=== PATIENT | female | born 1985 | race Caucasian/White ===

== ENCOUNTER 2020-05-08 12:44 | Inpatient (IN) | payer BC, OTHER ==
[2020-05-08] VITALS (8 sets, daily range): BP systolic 100–116; BP diastolic 52–68
[~2020-05-08] VITALS: Ht 172.7 cm; Wt 73.0 kg
[2020-05-08 13:33] LABS: BASO # 0.1 x10^3/uL (0.0-0.2); BASO % 1 % (0-3); EOS # 0.1 x10^3/uL (0.0-0.7); EOS % 1 % (0-3); HEMATOCRIT 39.5 % (36.0-47.0); HEMOGLOBIN 13.1 g/dL (12.0-15.5); LYMPH # 2.7 x10^3/uL (1.0-4.8); LYMPH % 17 % (24-48); MEAN CORPUSCULAR HEMOGLOBIN 29 pg (25-35); MEAN CORPUSCULAR HGB CONC 33 g/dL (31-37); MEAN CORPUSCULAR VOLUME 88 fL (79-100); MONO # 0.7 x10^3/uL (0.0-1.1); MONO % 5 % (0-9); NEUT # 12.3 x10^3/uL (1.8-7.7); NEUT % 77 % (31-73); PLATELET COUNT 413 x10^3/uL (140-400); RED BLOOD COUNT 4.51 x10^6/uL (3.50-5.40); RED CELL DISTRIBUTION WIDTH 13.3 % (11.5-14.5)
[2020-05-08 13:47] LABS: PROTHROMBIN TIME PATIENT 12.7 SEC (11.7-14.0)
[2020-05-08 14:15] LABS: PREG TEST PT QUAL NEGATIVE (NEG)
[2020-05-08] MEDS ORDERED: IV NORMAL SALINE 1000ML BAG 1,000 ML IV ONE ×2 (14:15)
[2020-05-08] MEDS ORDERED: ONDANSETRON PF 4 MG/2 ML VIAL. IVP ONE (14:15)
[2020-05-08] MEDS ORDERED: MORPHINE SULFATE 10 MG/ML VIAL. IV ONE (14:15)
--- NOTE | 2020-05-08 17:30 | ED.ADGEN ---
Past Medical History Past Medical History: No Pertinent History Past Surgical History: Other Smoking Status: Never Smoker Alcohol Use: None General Adult EDM: Chief Complaint: VAGINAL BLEEDING HPI: HPI: Patient is a 35-year-old previously healthy female who presents to the emergency room complaining of vaginal bleeding. Patient had a LEEP procedure done at an outside facility just over 2 weeks ago. She has not had any problems until today. She was at work and stood up and felt a gush of blood. Since then she has had continuous bleeding with lots of clots. She denies any chance of being . She is having lower abdominal cramping. She feels fatigued but denies any dizziness shortness of breath. Review of Systems: Review of Systems: General: Denies fever, chills, sweats, fatigue Eyes: Denies drainage, blurred vision, eye redness HENT: Denies rhinorrhea, sore throat, earache Respiratory: Denies cough, shortness of breath, wheezing Cardiac: Denies edema, palpitations, chest pain GI: Denies abdominal pain, Nausea, vomiting : Heavy vaginal bleeding. Denies vaginal discharge MSK: Denies back pain, neck pain Skin: Denies rash, jaundice Neuro: Denies headache, dizziness Psychiatric: Denies SI/HI Current Medications: Current Medications Medications (Trade) Dose Ordered Sig/Katia Start Time Stop Time Status Last Admin Dose Admin Morphine Sulfate (Morphine Sulfate) 5 mg 1X ONCE 05/08/20 14:15 05/08/20 14:16 DC 05/08/20 14:27 5 MG Ondansetron HCl (Zofran) 4 mg 1X ONCE 05/08/20 14:15 05/08/20 14:16 DC 05/08/20 14:27 4 MG Sodium Chloride 1,000 ml @ 1,000 mls/hr 1X ONCE 05/08/20 14:15 05/08/20 15:14 DC 05/08/20 13:20 1,000 MLS/HR Allergies: Allergies: Allergies Coded Allergies Type Severity Reaction Last Updated Verified No Known Drug Allergies 06/24/13 No Physical Exam: PE: Constitutional: Well developed, well nourished, no acute distress, non-toxic appearance. HENT: Normocephalic, atraumatic, bilateral external ears normal, nose normal. Eyes: PERRLA, EOMI, conjunctiva normal, no discharge. Neck: Normal range of motion, no stridor. Cardiovascular: Heart rate regular rhythm Lungs & Thorax: Respirations even and unlabored, no retractions, no respiratory distress Pelvic Exam: Store Administrative Assistant present Abdomen: Nontender, soft External Genitalia: Normal Skin Speculum: Normal vaginal mucosa, large golf ball size clots in the vaginal vault with continuous dark bleeding, no arterial bleeding Bimanual: No adnexal masses or tenderness, No CMT Skin: Warm, dry, no erythema, no rash. Back: No tenderness Extremities: No cyanosis, ROM intact, no edema. Neurologic: Alert and oriented X 3, no focal deficits noted. Psychologic: Affect normal, judgement normal, mood normal. Recurrent perforated Current Patient Data: Labs: Laboratory Tests Test 05/08/20 13:10 05/08/20 14:00 White Blood Count 16.0 x10^3/uL (4.0-11.0) H Red Blood Count 4.51 x10^6/uL (3.50-5.40) Hemoglobin 13.1 g/dL (12.0-15.5) Hematocrit 39.5 % (36.0-47.0) Mean Corpuscular Volume 88 fL (79-100) Mean Corpuscular Hemoglobin 29 pg (25-35) Mean Corpuscular Hemoglobin Concent 33 g/dL (31-37) Red Cell Distribution Width 13.3 % (11.5-14.5) Platelet Count 413 x10^3/uL (140-400) H Neutrophils (%) (Auto) 77 % (31-73) H Lymphocytes (%) (Auto) 17 % (24-48) L Monocytes (%) (Auto) 5 % (0-9) Eosinophils (%) (Auto) 1 % (0-3) Basophils (%) (Auto) 1 % (0-3) Neutrophils # (Auto) 12.3 x10^3/uL (1.8-7.7) H Lymphocytes # (Auto) 2.7 x10^3/uL (1.0-4.8) Monocytes # (Auto) 0.7 x10^3/uL (0.0-1.1) Eosinophils # (Auto) 0.1 x10^3/uL (0.0-0.7) Basophils # (Auto) 0.1 x10^3/uL (0.0-0.2) Prothrombin Time 12.7 SEC (11.7-14.0) Prothrombin Time INR 1.0 (0.8-1.1) Serum Test, Qualitative Negative (NEG) SARS-CoV-2 Antigen (Rapid) Negative (NEGATIVE) Laboratory Tests 05/08/20 13:10 Vital Signs: Vital Signs Date Time Temp Pulse Resp B/P (MAP) Pulse Ox O2 Delivery O2 Flow Rate FiO2 05/08/20 14:45 102 16 106/68 (81) 99 Room Air 05/08/20 13:05 98.7 98.7 EKG: EKG: [] Heart Score: Risk Factors: Risk Factors: DM, Current or recent (<one month) smoker, HTN, HLP, family history of CAD, obesity. Risk Scores: Score 0 - 3: 2.5% MACE over next 6 weeks - Discharge Home Score 4 - 6: 20.3% MACE over next 6 weeks - Admit for Clinical Observation Score 7 - 10: 72.7% MACE over next 6 weeks - Early Invasive Strategies Radiology/Procedures: Radiology/Procedures: [] Course & Med Decision Making: Course & Med Decision Making Pertinent Labs and Imaging studies reviewed. (See chart for details) Patient is a 35-year-old female who presents to the emergency room complaining heavy vaginal bleeding 2 weeks after a LEEP procedure. On exam patient has large amounts of blood clots with continuous bleeding. I called her BOX [facility] Dr. Bernal who stated the she would prefer the patient be transferred to where she had the procedure done. I called and talked to the physician and [facility] who feels that the patient is not stable for transfer. Dr. Bernal will admit the patient and take her to the OR for repair. Dragon Disclaimer: Dragbecky Disclaimer: This electronic medical record was generated, in whole or in part, using a voice recognition dictation system. Critical Care Time Critical Care: Authorized and Performed by: Parris Law MD Total critical care time: approximately 35 minutes Due to a high probability of clinically significant, life threatening deterioration, the patient required my highest level of preparedness to intervene emergently and I personally spent this critical care time directly and personally managing the patient. This critical care time included obtaining a history; examining the patient; pulse oximetry; ventilator management if necessary; ordering and review of studies; arranging urgent treatment with development of a management plan; evaluation of patient's response to treatment; frequent reassessment; discussion with patient/family; and, discussions with other providers. This critical care time was performed to assess and manage the high probability of imminent, life-threatening deterioration that could result in multi-organ failure. It was exclusive of separately billable procedures and treating other patients and teaching time. Please see MDM section and the rest of the note for further information on patient assessment and treatment. Departure Departure Impression: Primary Impression: Excessive vaginal bleeding Disposition: 09 ADMITTED INPT THIS HOSP Condition: STABLE Referrals: VIKTOR ADAME DO (PCP) PARRIS LAW MD May 08, 2020 17:30
[2020-05-08] MEDS ORDERED: IV RINGERS,LACTATED 1000ML 1,000 ML IV SCH (18:12)
[2020-05-08] MEDS ORDERED: MORPHINE SULFATE 2 MG/ML VIAL. IV PRN (18:15)
[2020-05-08] MEDS ORDERED: PROCHLORPERAZINE 10 MG/2 ML VIAL. IV PRN (18:15)
[2020-05-08] MEDS ORDERED: ONDANSETRON PF 4 MG/2 ML VIAL. IV PRN (18:15)
[2020-05-08] MEDS ORDERED: HYDROmorphone 2 MG/ML VIAL IV PRN (18:15)
[2020-05-08] MEDS ORDERED: LIDOCAINE 1% PF 2 ML VIAL. ID PRN (18:15)
[2020-05-08] MEDS ORDERED: fentaNYL PF VIAL 100 MCG/2 ML VIAL IV PRN ×2 (18:15)
--- NOTE | 2020-05-08 18:23 | PDOC ---
GENERAL General: 35yrs old lady had Leep Procedure 2 weeks ago came to ER for heavy Bleeding this Morning. VITAL SIGNS Vital Signs/I&O: Vital Signs Date Time Temp Pulse Resp B/P (MAP) Pulse Ox O2 Delivery O2 Flow Rate FiO2 05/08/20 13:05 98.7 125 22 141/69 (93) 99 Room Air 98.7 ALLERGIES Allergies: Allergies Coded Allergies Type Severity Reaction Last Updated Verified No Known Drug Allergies 06/24/13 No MEDS Medications: Current Medications Medications (Trade) Dose Ordered Sig/Katia Route PRN Reason Start Time Stop Time Status Last Admin Dose Admin Sodium Chloride 1,000 ml @ 1,000 mls/hr 1X ONCE IV 05/08/20 14:15 05/08/20 15:14 DC 05/08/20 14:27 Morphine Sulfate (Morphine Sulfate) 5 mg 1X ONCE IV 05/08/20 14:15 05/08/20 14:16 DC 05/08/20 14:27 Ondansetron HCl (Zofran) 4 mg 1X ONCE IVP 05/08/20 14:15 05/08/20 14:16 DC 05/08/20 14:27 Sodium Chloride 1,000 ml @ 1,000 mls/hr 1X ONCE IV 05/08/20 14:15 05/08/20 15:14 DC 05/08/20 13:20 LAB Lab: Laboratory Tests Test 05/08/20 13:10 05/08/20 14:00 White Blood Count 16.0 x10^3/uL (4.0-11.0) H Red Blood Count 4.51 x10^6/uL (3.50-5.40) Hemoglobin 13.1 g/dL (12.0-15.5) Hematocrit 39.5 % (36.0-47.0) Mean Corpuscular Volume 88 fL (79-100) Mean Corpuscular Hemoglobin 29 pg (25-35) Mean Corpuscular Hemoglobin Concent 33 g/dL (31-37) Red Cell Distribution Width 13.3 % (11.5-14.5) Platelet Count 413 x10^3/uL (140-400) H Neutrophils (%) (Auto) 77 % (31-73) H Lymphocytes (%) (Auto) 17 % (24-48) L Monocytes (%) (Auto) 5 % (0-9) Eosinophils (%) (Auto) 1 % (0-3) Basophils (%) (Auto) 1 % (0-3) Neutrophils # (Auto) 12.3 x10^3/uL (1.8-7.7) H Lymphocytes # (Auto) 2.7 x10^3/uL (1.0-4.8) Monocytes # (Auto) 0.7 x10^3/uL (0.0-1.1) Eosinophils # (Auto) 0.1 x10^3/uL (0.0-0.7) Basophils # (Auto) 0.1 x10^3/uL (0.0-0.2) Prothrombin Time 12.7 SEC (11.7-14.0) Prothrombin Time INR 1.0 (0.8-1.1) Serum Test, Qualitative Negative (NEG) SARS-CoV-2 Antigen (Rapid) Negative (NEGATIVE) Laboratory Tests 05/08/20 13:10 ASSESSMENT & PLAN A&P Patient has Postop Bleeding after Leep Procedure 2 weeks ago. Passing Clots. Hb 12. Patient Bleeding conyinuously hence admitted for Surgery. Justifications for Admission Other Justification DESTINEY HEARD MD May 08, 2020 18:23
[2020-05-08] MEDS ORDERED: fentaNYL PF VIAL 100 MCG/2 ML VIAL ONE (19:20)
[2020-05-08] MEDS ORDERED: LIDOCAINE 2% PF 5 ML VIAL. ONE (19:21)
[2020-05-08] MEDS ORDERED: DEXAMETHASONE SOD PHOS 4 MG/ML VIAL ONE (19:21)
[2020-05-08] MEDS ORDERED: ONDANSETRON PF 4 MG/2 ML VIAL. ONE (19:21)
[2020-05-08] MEDS ORDERED: PROPOFOL 10 MG/ML (20ML) VIAL. IV ONE (19:21)
[2020-05-08] MEDS ORDERED: MIDAZOLAM HCL/PF 2 MG/2 ML VIAL. ONE (19:21)
[2020-05-08] MEDS ORDERED: ceFAZolin SODIUM IV Push 1 GM VIAL. IVP ONE (19:24)
[2020-05-08] MEDS ORDERED: FERRIC SUBSULFATE 8 ML SOL.W.APPL TP ONE (19:27)
[2020-05-08] MEDS ORDERED: OXYTOCIN 10 UNIT/ML VIAL. ONE ×2 (19:53)
--- NOTE | 2020-05-08 20:06 | PDOC ---
GENERAL General: Postop Leep Procedure and Vaginal Bleeding VITAL SIGNS Vital Signs/I&O: Vital Signs Date Time Temp Pulse Resp B/P (MAP) Pulse Ox O2 Delivery O2 Flow Rate FiO2 05/08/20 18:53 100.0 98 18 131/59 99 Room Air 100.0 ALLERGIES Allergies: Allergies Coded Allergies Type Severity Reaction Last Updated Verified No Known Drug Allergies 06/24/13 No MEDS Medications: Current Medications Medications (Trade) Dose Ordered Sig/Katia Route PRN Reason Start Time Stop Time Status Last Admin Dose Admin Sodium Chloride 1,000 ml @ 1,000 mls/hr 1X ONCE IV 05/08/20 14:15 05/08/20 15:14 DC 05/08/20 14:27 Morphine Sulfate (Morphine Sulfate) 5 mg 1X ONCE IV 05/08/20 14:15 05/08/20 14:16 DC 05/08/20 14:27 Ondansetron HCl (Zofran) 4 mg 1X ONCE IVP 05/08/20 14:15 05/08/20 14:16 DC 05/08/20 14:27 Sodium Chloride 1,000 ml @ 1,000 mls/hr 1X ONCE IV 05/08/20 14:15 05/08/20 15:14 DC 05/08/20 13:20 LAB Lab: Laboratory Tests Test 05/08/20 13:10 05/08/20 14:00 White Blood Count 16.0 x10^3/uL (4.0-11.0) H Red Blood Count 4.51 x10^6/uL (3.50-5.40) Hemoglobin 13.1 g/dL (12.0-15.5) Hematocrit 39.5 % (36.0-47.0) Mean Corpuscular Volume 88 fL (79-100) Mean Corpuscular Hemoglobin 29 pg (25-35) Mean Corpuscular Hemoglobin Concent 33 g/dL (31-37) Red Cell Distribution Width 13.3 % (11.5-14.5) Platelet Count 413 x10^3/uL (140-400) H Neutrophils (%) (Auto) 77 % (31-73) H Lymphocytes (%) (Auto) 17 % (24-48) L Monocytes (%) (Auto) 5 % (0-9) Eosinophils (%) (Auto) 1 % (0-3) Basophils (%) (Auto) 1 % (0-3) Neutrophils # (Auto) 12.3 x10^3/uL (1.8-7.7) H Lymphocytes # (Auto) 2.7 x10^3/uL (1.0-4.8) Monocytes # (Auto) 0.7 x10^3/uL (0.0-1.1) Eosinophils # (Auto) 0.1 x10^3/uL (0.0-0.7) Basophils # (Auto) 0.1 x10^3/uL (0.0-0.2) Prothrombin Time 12.7 SEC (11.7-14.0) Prothrombin Time INR 1.0 (0.8-1.1) Serum Test, Qualitative Negative (NEG) SARS-CoV-2 Antigen (Rapid) Negative (NEGATIVE) Laboratory Tests 05/08/20 13:10 ASSESSMENT & PLAN A&P Under GA Pelvic Exam done Patient hadv oozing from Cervix which was Cauterized Monsols Solution applied and large Vaginal Packing done. EBL 25cc Justifications for Admission Other Justification DESTINEY HEARD MD May 08, 2020 20:06
--- NOTE | 2020-05-08 20:17 | OP ---
DATE OF SURGERY: 05/08/2020 PREOPERATIVE DIAGNOSIS: Postoperative LEEP procedure bleeding. POSTOPERATIVE DIAGNOSIS: Postoperative LEEP procedure bleeding. OPERATION PERFORMED: Cauterization of the cervix and vaginal packing. OPERATIVE PROCEDURE: The patient was taken to the operating room. Under general anesthesia, the patient was placed in a dorsal lithotomy position. Perineum was prepped and draped in the usual manner. Weighted speculum was inserted in the posterior vaginal wall and anterior lip of the cervix held with a tenaculum. Visualization of the cervix revealed some oozing spots on the anterior lip as well as the posterior lip and all these areas were cauterized and after the cauterization, Monsel's solution was applied on the surface of the cervix and a large 2-inch vaginal packing was done. The patient was sent to the recovery room in good condition. No complications encountered at the time of the procedure. She did receive 20 units of Pitocin IV bottle of fluid during the time of the surgical procedure and after the packing, there was no other active vaginal bleeding noted. Estimated blood loss was 25 mL. Postoperative condition was stable and the patient was sent to the recovery room in good condition. DESTINEY HEARD MD DR: GLENIS/darlene JOB#: [id number] / [id number]
[2020-05-09 00:55] VITALS: BP 100/57
[2020-05-09 06:08] VITALS: BP 98/47
--- NOTE | 2020-05-09 09:59 | PDOC ---
GENERAL General: Patient doing well. No vAGINAL bLEEDING. VITAL SIGNS Vital Signs/I&O: Vital Signs Date Time Temp Pulse Resp B/P (MAP) Pulse Ox O2 Delivery O2 Flow Rate FiO2 05/09/20 06:08 98.3 66 18 98/47 (64) 98 Room Air 98.3 I & O 05/08/20 05/08/20 05/09/20 15:00 23:00 07:00 Intake Total 900 ml 700 ml Output Total 250 ml 650 ml Balance 650 ml 50 ml ALLERGIES Allergies: Allergies Coded Allergies Type Severity Reaction Last Updated Verified No Known Drug Allergies 06/24/13 No MEDS Medications: Current Medications Medications (Trade) Dose Ordered Sig/Katia Route PRN Reason Start Time Stop Time Status Last Admin Dose Admin Sodium Chloride 1,000 ml @ 1,000 mls/hr 1X ONCE IV 05/08/20 14:15 05/08/20 15:14 DC 05/08/20 14:27 Morphine Sulfate (Morphine Sulfate) 5 mg 1X ONCE IV 05/08/20 14:15 05/08/20 14:16 DC 05/08/20 14:27 Ondansetron HCl (Zofran) 4 mg 1X ONCE IVP 05/08/20 14:15 05/08/20 14:16 DC 05/08/20 14:27 Sodium Chloride 1,000 ml @ 1,000 mls/hr 1X ONCE IV 05/08/20 14:15 05/08/20 15:14 DC 05/08/20 13:20 Fentanyl Citrate (Fentanyl 2ml Vial) 50 mcg PRN Q5MIN PRN IV MODERATE TO SEVERE PAIN 05/08/20 18:15 05/09/20 18:14 05/08/20 21:07 Ferric Subsulfate (Monsel'S) 8 ml STK-MED ONCE TP 05/08/20 19:27 05/08/20 19:27 DC 05/08/20 19:45 Cefazolin Sodium/ Dextrose 50 ml @ 100 mls/hr 1X ONCE IV 05/08/20 19:30 05/08/20 20:44 DC 05/08/20 19:42 LAB Lab: Laboratory Tests Test 05/08/20 13:10 05/08/20 14:00 White Blood Count 16.0 x10^3/uL (4.0-11.0) H Red Blood Count 4.51 x10^6/uL (3.50-5.40) Hemoglobin 13.1 g/dL (12.0-15.5) Hematocrit 39.5 % (36.0-47.0) Mean Corpuscular Volume 88 fL (79-100) Mean Corpuscular Hemoglobin 29 pg (25-35) Mean Corpuscular Hemoglobin Concent 33 g/dL (31-37) Red Cell Distribution Width 13.3 % (11.5-14.5) Platelet Count 413 x10^3/uL (140-400) H Neutrophils (%) (Auto) 77 % (31-73) H Lymphocytes (%) (Auto) 17 % (24-48) L Monocytes (%) (Auto) 5 % (0-9) Eosinophils (%) (Auto) 1 % (0-3) Basophils (%) (Auto) 1 % (0-3) Neutrophils # (Auto) 12.3 x10^3/uL (1.8-7.7) H Lymphocytes # (Auto) 2.7 x10^3/uL (1.0-4.8) Monocytes # (Auto) 0.7 x10^3/uL (0.0-1.1) Eosinophils # (Auto) 0.1 x10^3/uL (0.0-0.7) Basophils # (Auto) 0.1 x10^3/uL (0.0-0.2) Prothrombin Time 12.7 SEC (11.7-14.0) Prothrombin Time INR 1.0 (0.8-1.1) Serum Test, Qualitative Negative (NEG) SARS-CoV-2 Antigen (Rapid) Negative (NEGATIVE) Laboratory Tests 05/08/20 13:10 ASSESSMENT & PLAN A&P Vaginal Packing Removed. Vital signs stable. Patient to go home today. Justifications for Admission Other Justification DESTINEY HEARD MD May 09, 2020 09:59
[2020-05-09 12:15] VITALS: BP 111/61
--- NOTE | 2020-05-09 12:15 | NUR ---
Discharge instructions given to pt, pt verbalized understanding. pt discharged home
== END 2020-05-09 12:30 | disposition home or self-care (01) | DRG 909 ==
LOC: ER 12:44 → 3 NORTH 14:48
PROVIDERS: ADMIT Obstetrics & Gynecology; ATTEND Obstetrics & Gynecology
PROC: 0W3R7ZZ Control Bleeding in Genitourinary Tract, Via Natural or Artificial Opening (ICD-10-PCS; principal; 2020-05-08 19:00)
DX: N99.820 Postprocedural hemorrhage of a genitourinary system organ or structure following a genitourinary system procedure (principal); N93.9 Abnormal uterine and vaginal bleeding, unspecified; Z20.828 Contact with and (suspected) exposure to other viral communicable diseases
CPT/HCPCS: 36415; 84703; 85025; 85610; 86850; 86900; 86901; 87426; 96361; 96374; 96375; 99285; A7015; J0690; J1100; J2250; J2270; J2405; J2590; J2704; J3010; J7030; J7120; G0378; U0003-CS